=== PATIENT | male | born 1995 | race African-American/Black ===

== ENCOUNTER 2020-12-10 06:33 | Emergency (ER) | payer OTHER ==
[~2020-12-10] VITALS: Ht 182.9 cm; Wt 73.9 kg
[2020-12-10 06:38] VITALS: BP 120/83
== END 2020-12-10 08:54 | disposition home or self-care (01) ==
LOC: ER 06:33
PROVIDERS: Emergency Medicine
DX: G43.909 Migraine, unspecified, not intractable, without status migrainosus (principal); Z20.822 Contact with and (suspected) exposure to COVID-19; Z91.030 Bee allergy status; Z91.038 Other insect allergy status; F12.90 Cannabis use, unspecified, uncomplicated